=== PATIENT | male | born 1950 | race Caucasian/White ===

== ENCOUNTER 2021-05-15 16:52 | Observation (INO) ==
[2021-05-15] MEDS ORDERED: Ipratropium/Albuterol Neb 3 ML IH ONE (16:59)
[2021-05-15] MEDS ORDERED: Azithromycin 500 MG in 0.9 % Sodium Chloride 250 ML IVPB ONE (16:59)
[2021-05-15] MEDS ORDERED: methylPREDNISolone 125 MG/2 ML VIAL IVP ONE (16:59)
[2021-05-15] MEDS ORDERED: 0.9 % Sodium Chloride 1,000 ML IVC ONE (16:59)
[2021-05-15] MEDS ORDERED: cefTRIAXone 2,000 MG in 0.9 % Sodium Chloride Mini Bag 100 ML IVPB ONE (17:00)
[2021-05-15 17:12] LABS: Basophils # 0.1 K/mcL (0.0-0.2); Basophils % 0.8 %; Eosinophils # 2.1 K/mcL (0.0-0.6); Eosinophils % 16.9 %; Hematocrit 46.5 % (37.5-50.1); Hemoglobin 15.7 g/dL (12.9-16.9); Immature Granulocytes % 0.3 % (0-4); Lymphocytes # 2.7 K/mcL (0.6-4.6); Lymphocytes % 22.2 %; Mean Corpuscular HGB Conc 33.8 g/dL (31.6-35.5); Mean Corpuscular Hemoglobin 32.2 pg (28.0-33.3); Mean Corpuscular Volume 95.3 fL (83.0-100.0); Mean Platelet Volume 10.3 fL (9.4-12.4); Monocytes # 1.1 K/mcL (0.0-1.3); Neutrophils # 6.2 K/mcL (1.6-8.9); Platelet Count 255 K/mcL (140-400); Red Blood Count 4.88 M/mcL (4.19-5.50); Red Cell Distribution Width 12.7 % (11.5-14.5); Segmented Neutrophils % 50.8 %; White Blood Count 12.2 K/mcL (4.3-11.1)
[2021-05-15 17:19] LABS: INR 1.1; Prothrombin Time 12.6 Seconds (9.4-12.1)
[2021-05-15 17:21] LABS: Activated Partial Thrombo Time 36.2 Seconds (26.0-36.0)
[2021-05-15 17:24] LABS: ABG Base Excess 0 mEq/L (-2 to 3); ABG HCO3 26 mEq/L (21-27); ABG Oxygen Saturation 92 % (95-98); ABG PCO2 46 mmHg (35-45); ABG PH 7.36 pH Units (7.32-7.45); ABG PO2 66 mmHg (85-104); ABG TCO2 27 mEq/L (20-26)
[2021-05-15 17:26] LABS: Alanine Aminotransferase 13 Units/L (7-52); Albumin 4.2 g/dL (3.5-5.7); Albumin/Globulin Ratio 1.2 (1.1-2.2); Alkaline Phosphatase 68 Units/L (34-104); Aspartate Amino Transferase 14 Units/L (13-39); BUN/Creatinine Ratio 9 (6-26); Bilirubin,Direct 0.1 mg/dL (0.0-0.2); Bilirubin,Indirect 0.5 mg/dL (0.0-1.0); Bilirubin,Total 0.6 mg/dL (0.3-1.0); Blood Urea Nitrogen 10 mg/dL (8-23); Calcium 8.9 mg/dL (8.6-10.3); Carbon Dioxide 27 mEq/L (23-29); Chloride 102 mEq/L (98-107); Globulin 3.4 g/dL (2.4-3.5); Glucose 94 mg/dL (70-105); Osmolality,Calculated 287 (280-300); Potassium 4.2 mEq/L (3.5-5.1); Sodium 139 mEq/L (136-145); Total Protein 7.6 g/dL (6.4-8.9); eGFR For African Americans > 60 (> 60); eGFR For Non-African Americans > 60 (> 60)
[2021-05-15 17:30] LABS: Troponin I < 0.03 ng/mL (< 0.04)
[2021-05-15] MEDS ORDERED: Naloxone 0.4 MG/ML INJ IVP PRN (17:51)
[2021-05-15] MEDS ORDERED: Acetaminophen 325 MG TABLET PO PRN (17:51)
[2021-05-15] MEDS ORDERED: Ondansetron 4 MG/2 ML VIAL IVP PRN (17:51)
[2021-05-15] MEDS: 0.9 % Sodium Chloride 1,000 ML IVC SCH (18:48)
[2021-05-15] MEDS: Ipratropium/Albuterol Neb 3 ML IH SCH (20:56)
[2021-05-16] MEDS: Ipratropium/Albuterol Neb 3 ML IH SCH ×3 (00:33→07:51)
[2021-05-16] MEDS: MethylPREDNISolone 40 MG/ML VIAL IVP SCH ×2 (01:57→08:29)
[2021-05-16 04:15] VITALS: RESP 16
[2021-05-16 07:00] VITALS: BP 138/68; PULSE 99; TEMP 97.4
[2021-05-16 07:49] LABS: Basophils % 0.1 %; Hematocrit 39.7 % (37.5-50.1); Hemoglobin 13.3 g/dL (12.9-16.9); Immature Granulocytes % 0.5 % (0-4); Lymphocytes # 0.6 K/mcL (0.6-4.6); Lymphocytes % 5.4 %; Mean Corpuscular HGB Conc 33.5 g/dL (31.6-35.5); Mean Corpuscular Volume 95.7 fL (83.0-100.0); Mean Platelet Volume 10.3 fL (9.4-12.4); Monocytes # 0.2 K/mcL (0.0-1.3); Monocytes % 1.5 %; Platelet Count 206 K/mcL (140-400); Red Blood Count 4.15 M/mcL (4.19-5.50); Red Cell Distribution Width 12.8 % (11.5-14.5); Segmented Neutrophils % 92.5 %; White Blood Count 10.8 K/mcL (4.3-11.1)
[2021-05-16] MEDS ORDERED: Ipratropium/Albuterol Neb 3 ML IH PRN (08:21)
[2021-05-16] MEDS: 0.9 % Sodium Chloride 1,000 ML IVC SCH (08:24)
[2021-05-16 08:30] LABS: BUN/Creatinine Ratio 12 (6-26); Blood Urea Nitrogen 11 mg/dL (8-23); Calcium 8.5 mg/dL (8.6-10.3); Carbon Dioxide 23 mEq/L (23-29); Chloride 105 mEq/L (98-107); Glucose 168 mg/dL (70-105); Osmolality,Calculated 289 (280-300); Potassium 3.8 mEq/L (3.5-5.1); Sodium 138 mEq/L (136-145); eGFR For African Americans > 60 (> 60); eGFR For Non-African Americans > 60 (> 60)
[2021-05-16 10:15] VITALS: O2SAT 95
[2021-05-16] MEDS ORDERED: Azithromycin 500 MG in 0.9 % Sodium Chloride 250 ML IVPB SCH (17:00)
== END 2021-05-16 11:27 | disposition home or self-care (01) ==
LOC: INPPIK 16:52 → EMEROOPIK 16:52 → INPPIK 18:06
PROVIDERS: ADMIT Family Medicine; ATTEND Family Medicine